=== PATIENT | male | born 1985 | race Caucasian/White ===

== ENCOUNTER 2018-09-19 11:19 | Emergency (ER) | payer MEDICAID ==
[~2018-09-19] VITALS: Ht 170.2 cm; Wt 68.0 kg
[2018-09-19] MEDS ORDERED: BUPR1FIL3 SL (11:31)
--- NOTE | 2018-09-19 12:00 | NUR ---
hospital tray providedfor pt per request
--- NOTE | 2018-09-19 12:10 | NUR ---
Mark paez in ED - 09/19/18 at 1229 by TAMARA jaylon, supervisor machine workers at bedside talking to pt.
--- NOTE | 2018-09-19 12:10 | NUR ---
jaylon, social service agency director at bedside talkng to pt.
--- NOTE | 2018-09-19 12:28 | NUR ---
Patient discharged to home in stable conditon. Written and verbal after care instructions given. Patient verbalizes understanding of instructions.pt walks in steady gait.
--- NOTE | 2018-09-19 14:19 | NUR ---
11:45am: SW consultation requested for this patient. SW arrived to the ED, met with Dr. Muniz to discuss patient's needs. SW then met with patient who was in his assigned ED bed. Patient is a 33 year old male who came to the ER complaining of hip/thigh pain. Patient was also requesting to speak with SW in order to obtain resources for drug rehab programs. Patient was receptive to meeting with SW. Affect and behavior were appropriate. Patient maintained appropriate eye contact during interview. Oriented x 4. Patient reported a long history of drug and alcohol use. Patient stated that he had been using drugs on and off since the age of 17, and alcohol on and off since the age of 19. However, over the last 40 days patient stated that he had been using opiates and alcohol on a daily basis and "I was spiraling downward and needed to get out". Patient reported he was in a detox program at [facility] from 09/11-09/19, however got kicked out this morning and was therefore unable to enroll in their rehab program. Patient requested information on other rehab programs. RICHARD provided patient with the following referrals: 1) [facility]: [id number] [place] [address], 2) [facility]: [address] [place] [address], 3) the 0-170 call center telephone number for patient to call and get the names of Drug and [facility] Rehab Centers anywhere in the [facility] that accept [facility]: [phone]. RICHARD called [facility] to inquire about the referral process. RICHARD spoke with Nery, who stated that patient would need to call them directly in order for them to complete a phone interview with him. RICHARD called [facility] and spoke with Darcie to inquire about the referral process, and Darcie stated that the patient would need to call them directly in order for them to complete a phone interview with him. RICHARD informed patient of above information. Patient thanked RICHARD for her time and the resources provided and stated that he would follow-up with the resources provided. Dr. Muniz informed of RICHARD interventions that were provided.
== END 2018-09-19 12:34 | disposition home or self-care (01) ==
LOC: ER 11:22
DX: S70.02XA Contusion of left hip, initial encounter (principal); W18.39XA Other fall on same level, initial encounter; Y93.89 Activity, other specified; Y92.89 Other specified places as the place of occurrence of the external cause; Y99.8 Other external cause status
CPT/HCPCS: 73502; A4663

== ENCOUNTER 2019-06-20 22:10 | Emergency (ER) | payer MEDICAID ==
[~2019-06-20] VITALS: Ht 175.3 cm; Wt 70.3 kg
[~2019-06-20 22:10] MED LIST: BUPR1FIL3 SL
[2019-06-20] MEDS ORDERED: ALPRAZOLAM 1 MG TABLET PO (22:23)
[2019-06-20] MEDS ORDERED: CLONIDINE HCL 0.2 MG TABLET (22:23)
[2019-06-20] MEDS ORDERED: ALPRAZOLAM 0.25 MG TABLET PO ONE (22:45)
[2019-06-20] MEDS ORDERED: ALPRAZOLAM 0.5 MG TABLET ONE (22:47)
--- NOTE | 2019-06-20 22:48 | NUR ---
Patient discharged to home in stable conditon. Written and verbal after care instructions given. Patient verbalizes understanding of instructions. WALKED OUT OF ER WITH STEADY GAIT. NO DISTRESS NOTED
[2019-06-20 22:49] VITALS: BP 145/77
== END 2019-06-20 22:50 | disposition home or self-care (01) ==
LOC: ER 22:10
DX: F13.20 Sedative, hypnotic or anxiolytic dependence, uncomplicated (principal); F41.9 Anxiety disorder, unspecified; Z76.0 Encounter for issue of repeat prescription; Z79.899 Other long term (current) drug therapy
CPT/HCPCS: A4663

== ENCOUNTER 2019-07-02 13:40 | Emergency (ER) | payer MEDICAID ==
[~2019-07-02] VITALS: Ht 175.3 cm; Wt 70.3 kg
[~2019-07-02 13:40] MED LIST changes: +ALPRAZOLAM 1 MG TABLET PO; -BUPR1FIL3 SL; +CLONIDINE HCL 0.2 MG TABLET
[2019-07-02] MEDS ORDERED: LORAZEPAM 1 MG TABLET ONE (13:58)
--- NOTE | 2019-07-02 13:59 | NUR ---
PT WAS EVALUATED BY DR VIDAL. PT WAS D/C'd TO HOME. D/C INSTRUCTIONS GIVEN TO THE PT.
[2019-07-02 14:00] VITALS: BP 141/81
[2019-07-02] MEDS ORDERED: LORAZEPAM 0.5 MG TABLET PO ONE (14:00)
== END 2019-07-02 14:01 | disposition home or self-care (01) ==
LOC: ER 13:42
DX: F13.20 Sedative, hypnotic or anxiolytic dependence, uncomplicated (principal); Z76.0 Encounter for issue of repeat prescription; Z79.899 Other long term (current) drug therapy
CPT/HCPCS: A4663

== ENCOUNTER 2019-07-03 00:11 | Emergency (ER) | payer MEDICAID ==
[~2019-07-03] VITALS: Ht 172.7 cm; Wt 70.3 kg
--- NOTE | 2019-07-03 00:45 | NUR ---
Patient discharged to home in stable conditon. Written and verbal after care instructions given. Patient verbalizes understanding of instructions. WALKED OUT OF ER WITH NO DISTRESS NOTED. PATIENT DENIES BEING HOMELESS.
[2019-07-03 02:48] VITALS: BP 150/80
== END 2019-07-03 01:30 | disposition home or self-care (01) ==
LOC: ER 00:13
DX: F41.9 Anxiety disorder, unspecified (principal); F11.10 Opioid abuse, uncomplicated; Z76.0 Encounter for issue of repeat prescription; Z79.899 Other long term (current) drug therapy
CPT/HCPCS: A4663

== ENCOUNTER 2019-08-08 15:57 | Emergency (ER) | payer MEDICAID ==
[~2019-08-08] VITALS: Ht 175.3 cm; Wt 70.3 kg
[2019-08-08] MEDS ORDERED: ALPR2TAB7 PO (16:23)
[2019-08-08 17:09] LABS: BASOPHILS % (AUTO) 0.3 % (0.0-2.0); EOSINOPHILS # (AUTO) 0.1 K/uL (0.0-0.7); EOSINOPHILS % (AUTO) 0.7 % (0.0-7.0); HEMATOCRIT 42.6 % (36.7-47.1); HEMOGLOBIN 14.4 g/dL (12.5-16.3); LYMPHOCYTES # (AUTO) 1.9 K/uL (20.0-40.0); LYMPHOCYTES % (AUTO) 23.1 % (20.5-51.5); MEAN CORPUSCULAR HEMOGLOBIN 31.5 uug (23.8-33.4); MEAN CORPUSCULAR HGB CONC 34 g/dL (32.5-36.3); MEAN CORPUSCULAR VOLUME 92.8 fL (73.0-96.2); MONOCYTES # (AUTO) 0.8 K/uL (2.0-10.0); MONOCYTES % (AUTO) 9.2 % (0.0-11.0); NEUTROPHILS # (AUTO) 5.5 K/uL (1.8-8.9); NEUTROPHILS % (AUTO) 66.7 % (38.5-71.5); PLATELET COUNT (AUTO) 279 K/uL (152-348); RED BLOOD CELL COUNT(AUTO) 4.59 MIL/uL (4.06-5.63); WHITE BLOOD COUNT (AUTO) 8.3 K/uL (3.6-10.2)
[2019-08-08] MEDS ORDERED: ALPRAZOLAM 0.25 MG TABLET PO ONE (17:15)
[2019-08-08] MEDS ORDERED: ALPRAZOLAM 0.5 MG TABLET ONE (17:16)
[2019-08-08 17:24] LABS: CREATININE 1.1 mg/dL (0.6-1.3)
[2019-08-08 17:29] LABS: BILIRUBIN,TOTAL 0.6 mg/dL (0.2-1.0); TOTAL PROTEIN, SERUM 7.4 g/dL (6.4-8.2)
--- NOTE | 2019-08-08 17:48 | NUR ---
Patient discharged to home in stable conditon. Written and verbal after care instructions given. Patient verbalizes understanding of instructions.pt wlks in steady gait. pt not driving.
== END 2019-08-08 17:50 | disposition home or self-care (01) ==
LOC: ER 15:58
DX: Z00.00 Encounter for general adult medical examination without abnormal findings (principal); F41.9 Anxiety disorder, unspecified; Z76.0 Encounter for issue of repeat prescription; Z79.899 Other long term (current) drug therapy
CPT/HCPCS: 36415; 85025; A4663

== ENCOUNTER 2019-09-12 12:18 | Emergency (ER) | payer MEDICAID ==
[~2019-09-12] VITALS: Ht 175.3 cm; Wt 65.8 kg
[~2019-09-12 12:18] MED LIST changes: +ALPR2TAB7 PO; -ALPRAZOLAM 1 MG TABLET PO; -CLONIDINE HCL 0.2 MG TABLET
[2019-09-12] MEDS ORDERED: ALPRAZOLAM 0.25 MG TABLET PO ONE (12:30)
[2019-09-12] MEDS ORDERED: ALPRAZOLAM 0.5 MG TABLET ONE (12:32)
--- NOTE | 2019-09-12 12:35 | NUR ---
Patient discharged to home in stable conditon. Written and verbal after care instructions given. Patient verbalizes understanding of instructions.
== END 2019-09-12 12:35 | disposition home or self-care (01) ==
LOC: ER 12:18
DX: F41.9 Anxiety disorder, unspecified (principal); Z76.0 Encounter for issue of repeat prescription; Z79.899 Other long term (current) drug therapy
CPT/HCPCS: A4663

== ENCOUNTER 2019-09-15 16:28 | Emergency (ER) | payer MEDICAID ==
[~2019-09-15] VITALS: Ht 175.3 cm; Wt 65.8 kg
[2019-09-15] MEDS ORDERED: ALPRAZOLAM 0.5 MG TABLET ONE (16:57)
[2019-09-15] MEDS ORDERED: ALPRAZOLAM 0.25 MG TABLET PO ONE (17:00)
[2019-09-15 17:12] VITALS: BP 98/58
--- NOTE | 2019-09-15 17:12 | NUR ---
Patient discharged to home in stable conditon. Written and verbal after care instructions given. Patient verbalizes understanding of instructions.
== END 2019-09-15 17:13 | disposition home or self-care (01) ==
LOC: ER 16:30
DX: F41.9 Anxiety disorder, unspecified (principal); Z76.0 Encounter for issue of repeat prescription; Z88.8 Allergy status to other drugs, medicaments and biological substances; Z79.899 Other long term (current) drug therapy
CPT/HCPCS: A4663

== ENCOUNTER 2019-09-20 15:47 | Emergency (ER) | payer SELFPAY ==
[~2019-09-20] VITALS: Ht 175.3 cm; Wt 65.8 kg
--- NOTE | 2019-09-20 15:58 | NUR ---
Patient discharged to home in stable conditon. Written and verbal after care instructions given. Patient verbalizes understanding of instructions.
== END 2019-09-20 15:59 | disposition home or self-care (01) ==
LOC: ER 15:48
DX: F41.9 Anxiety disorder, unspecified (principal); F11.10 Opioid abuse, uncomplicated; Z76.0 Encounter for issue of repeat prescription; Z88.8 Allergy status to other drugs, medicaments and biological substances; Z79.899 Other long term (current) drug therapy
CPT/HCPCS: A4663

== ENCOUNTER 2019-10-13 13:30 | Emergency (ER) | payer MEDICAID ==
[~2019-10-13] VITALS: Ht 175.3 cm; Wt 65.8 kg
--- NOTE | 2019-10-13 14:11 | NUR ---
PT IS IN ROOM #5. DR GUADALUPE EVALUATED THE PT.
[2019-10-13 14:38] VITALS: BP 136/81
--- NOTE | 2019-10-13 14:38 | NUR ---
PT WAS D/C'd TO HOME. D/C INSTRUCTIONS GIVEN TO THE PT BY DR GUADALUPE.
== END 2019-10-13 14:39 | disposition home or self-care (01) ==
LOC: ER 13:32
DX: F41.9 Anxiety disorder, unspecified (principal); F11.10 Opioid abuse, uncomplicated; Z76.5 Malingerer [conscious simulation]; Z88.8 Allergy status to other drugs, medicaments and biological substances; Z79.899 Other long term (current) drug therapy
CPT/HCPCS: A4663

== ENCOUNTER 2019-11-11 18:49 | Emergency (ER) | payer MEDICAID ==
[~2019-11-11] VITALS: Ht 172.7 cm; Wt 68.0 kg
--- NOTE | 2019-11-11 19:37 | NUR ---
DR BANKS INTO EVAL PATIENT.
--- NOTE | 2019-11-11 19:44 | NUR ---
PATIENT REFUSED BLOOD DRAW. DR BANKS AWARE.
[2019-11-11] MEDS ORDERED: DIAZEPAM 5 MG TABLET ONE (19:45)
[2019-11-11] MEDS ORDERED: DIAZEPAM 2 MG TABLET PO ONE (19:45)
--- NOTE | 2019-11-11 19:49 | NUR ---
Patient discharged to home in stable conditon. Written and verbal after care instructions given. Patient verbalizes understanding of instructions. WALKED OUT OF ER WITH NO DISTRESS NOTED.
[2019-11-11 19:50] VITALS: BP 116/76
== END 2019-11-11 19:50 | disposition home or self-care (01) ==
LOC: ER 18:53
DX: F41.9 Anxiety disorder, unspecified (principal); L08.9 Local infection of the skin and subcutaneous tissue, unspecified; Z76.0 Encounter for issue of repeat prescription; Z88.8 Allergy status to other drugs, medicaments and biological substances; Z79.899 Other long term (current) drug therapy
CPT/HCPCS: A4663

== ENCOUNTER 2019-11-23 16:02 | Emergency (ER) | payer MEDICAID ==
[~2019-11-23] VITALS: Ht 175.3 cm; Wt 68.0 kg
--- NOTE | 2019-11-23 18:38 | NUR ---
PT WAS SEEN AND D/C BY WITH [facility].
== END 2019-11-23 18:39 | disposition home or self-care (01) ==
LOC: ER 16:07
DX: F41.9 Anxiety disorder, unspecified (principal); Z76.0 Encounter for issue of repeat prescription; Z88.8 Allergy status to other drugs, medicaments and biological substances; Z79.899 Other long term (current) drug therapy
CPT/HCPCS: A4663

== ENCOUNTER 2019-12-09 09:31 | Emergency (ER) | payer MEDICAID ==
[~2019-12-09] VITALS: Ht 175.3 cm; Wt 68.0 kg
[2019-12-09] MEDS ORDERED: OXYCODONE/APAP 5-325 MG TABLET ONE (10:06)
--- NOTE | 2019-12-09 10:13 | NUR ---
PT WAS EVALUATED BY DR ADKINS. PT WAS D/C'd TO HOME.
[2019-12-09] MEDS ORDERED: OXYCODONE/APAP 5-325 MG TABLET PO ONE (10:15)
[2019-12-09 10:20] VITALS: BP 139/78
== END 2019-12-09 10:22 | disposition home or self-care (01) ==
LOC: ER 09:31
DX: S09.92XA Unspecified injury of nose, initial encounter (principal); F41.9 Anxiety disorder, unspecified; F11.10 Opioid abuse, uncomplicated; Z88.8 Allergy status to other drugs, medicaments and biological substances; Z79.899 Other long term (current) drug therapy; V19.9XXA Pedal cyclist (driver) (passenger) injured in unspecified traffic accident, initial encounter; Y93.89 Activity, other specified; Y92.89 Other specified places as the place of occurrence of the external cause; Y99.8 Other external cause status
CPT/HCPCS: A4663

== ENCOUNTER 2019-12-17 12:14 | Emergency (ER) | payer MEDICAID ==
[~2019-12-17] VITALS: Ht 175.3 cm; Wt 64.9 kg
[2019-12-17] MEDS ORDERED: DIAZEPAM 2 MG TABLET PO ONE (13:15)
[2019-12-17] MEDS ORDERED: DIAZEPAM 2 MG TABLET ONE (13:30)
--- NOTE | 2019-12-17 13:31 | NUR ---
Patient discharged to home in stable conditon. Written and verbal after care instructions given. Patient verbalizes understanding of instructions. Patient ambulated with stable gait.
[2019-12-17 13:34] VITALS: BP 116/71
== END 2019-12-17 13:35 | disposition home or self-care (01) ==
LOC: ER 12:14
DX: F41.9 Anxiety disorder, unspecified (principal); F11.10 Opioid abuse, uncomplicated; Z76.0 Encounter for issue of repeat prescription; Z88.8 Allergy status to other drugs, medicaments and biological substances; Z79.899 Other long term (current) drug therapy
CPT/HCPCS: A4663

== ENCOUNTER 2019-12-20 12:45 | Emergency (ER) | payer MEDICAID ==
[~2019-12-20] VITALS: Ht 175.3 cm; Wt 64.9 kg
[2019-12-20] MEDS ORDERED: IBUPROFEN 600 MG TABLET PO ONE (13:00)
[2019-12-20] MEDS ORDERED: IBUPROFEN 600 MG TABLET ONE (13:04)
--- NOTE | 2019-12-20 14:16 | NUR ---
Patient discharged to home in stable conditon. Written and verbal after care instructions given. pt refuses to sign the d/c instruction because he is upset about the fact that the md did not refill his valium px. pt walks in steady gait.no sign of distress.
== END 2019-12-20 14:18 | disposition home or self-care (01) ==
LOC: ER 12:45
DX: S13.4XXA Sprain of ligaments of cervical spine, initial encounter (principal); F41.9 Anxiety disorder, unspecified; Z88.8 Allergy status to other drugs, medicaments and biological substances; Z79.899 Other long term (current) drug therapy; X58.XXXA Exposure to other specified factors, initial encounter; Y93.39 Activity, other involving climbing, rappelling and jumping off; Y92.89 Other specified places as the place of occurrence of the external cause; Y99.8 Other external cause status
CPT/HCPCS: 72050; A4663

== ENCOUNTER 2020-01-14 06:58 | Emergency (ER) | payer MEDICAID ==
[~2020-01-14] VITALS: Ht 175.3 cm; Wt 64.0 kg
[2020-01-14] MEDS ORDERED: LORAZEPAM 0.5 MG TABLET PO ONE (07:15)
[2020-01-14] MEDS ORDERED: LORAZEPAM 0.5 MG TABLET ONE (07:24)
--- NOTE | 2020-01-14 07:31 | NUR ---
DOCTOR ARABELLA SPOKE WITH PATIENT AND GAVE HIM ONE TIME DOSE FOR ANXIETY AND REFERRALS TO VISIT A PRIMARY CARE PHYSICIAN. PATIENT IS STABLE AND IS REFUSING TO SIGN DISCHARGE PAPERWORK UNTIL HE SPEAKS TO ER PHYSICIAN AGAIN FOR A PRESCRIPTION.
--- NOTE | 2020-01-14 07:45 | NUR ---
DOCTOR ARABELLA SPOKE TO THE PATIENT AND EXPLAINED THAT HE NEEDS TO FIND A PRIMARY PHYSICAN FOR FURTHER REFILLS. PATIENT IS UPSET SLAMMING THINGS AROUND AND PATIENT LEFT WITHOUT SIGNING DISCHARGE PAPERWORK.
--- NOTE | 2020-01-14 07:48 | NUR ---
PATIENT DELIBERATELY THREW THE LIST OF REFFERALS AND DISCHARGE PAPERWORK ON THE GURNEY AND LEFT THE HOSPITAL.
== END 2020-01-14 07:54 | disposition home or self-care (01) ==
LOC: ER 06:58
DX: Z76.0 Encounter for issue of repeat prescription (principal); F41.9 Anxiety disorder, unspecified; Z79.899 Other long term (current) drug therapy; Z88.8 Allergy status to other drugs, medicaments and biological substances; Z60.2 Problems related to living alone
CPT/HCPCS: A4663

== ENCOUNTER 2020-01-19 17:06 | Emergency (ER) | payer MEDICAID ==
[~2020-01-19] VITALS: Ht 175.3 cm; Wt 65.8 kg
--- NOTE | 2020-01-19 17:38 | NUR ---
Dr Alejandra at the bedside for MSE.
[2020-01-19] MEDS ORDERED: LORAZEPAM 1 MG TABLET ONE (17:50)
[2020-01-19] MEDS ORDERED: LORAZEPAM 0.5 MG TABLET PO ONE (18:00)
[2020-01-19 18:07] VITALS: BP 111/57
--- NOTE | 2020-01-19 18:07 | NUR ---
Patient discharged to home in stable conditon. Written and verbal after care instructions given. Patient verbalizes understanding of instructions.
== END 2020-01-19 18:07 | disposition home or self-care (01) ==
LOC: ER 17:08
DX: J06.9 Acute upper respiratory infection, unspecified (principal); Z76.0 Encounter for issue of repeat prescription; Z60.2 Problems related to living alone; Z79.899 Other long term (current) drug therapy; Z88.8 Allergy status to other drugs, medicaments and biological substances
CPT/HCPCS: A4663

== ENCOUNTER 2020-01-27 12:01 | Emergency (ER) | payer MEDICAID ==
[~2020-01-27] VITALS: Ht 175.3 cm; Wt 64.9 kg
[2020-01-27] MEDS ORDERED: DIAZEPAM 2 MG TABLET PO ONE (13:00)
[2020-01-27] MEDS ORDERED: DIAZEPAM 5 MG TABLET ONE (13:09)
--- NOTE | 2020-01-27 13:10 | NUR ---
Patient discharged to home in stable conditon. Written and verbal after care instructions given. Patient verbalizes understanding of instructions.PT WALKS IN STEADY GAIT. PT NOT DRIVING.
== END 2020-01-27 13:14 | disposition home or self-care (01) ==
LOC: ER 12:01
DX: Z76.0 Encounter for issue of repeat prescription (principal); Z60.2 Problems related to living alone; Z88.8 Allergy status to other drugs, medicaments and biological substances; Z79.899 Other long term (current) drug therapy
CPT/HCPCS: A4663